=== PATIENT | female | born 1965 | race Caucasian/White ===

== ENCOUNTER 2020-12-11 13:10 | Inpatient (IN) | payer OTHER ==
[2020-12-11] MEDS ORDERED: ACETAMINOPHEN INJECTION 100 ML IVPB ONE (13:32)
[2020-12-11 14:06] LABS: BASO % 0.4 % (0-2.0); EOS % 0.1 % (0-4.5); HEMATOCRIT 41.5 % (32.4-45.2); HEMOGLOBIN 13.9 GM/dL (10.7-15.3); LYMPH % 19.4 % (8-40); MCH 29.3 pg (25.7-33.7); MCHC 33.5 g/dl (32.0-36.0); MEAN CELL VOLUME 87.7 fl (80-96); MEAN PLT VOLUME 9.4 fl (7.5-11.1); MONO % 6.3 % (3.8-10.2); NEUT % 73.8 % (42.8-82.8); PLATELET COUNT 198 K/MM3 (134-434); RBC 4.73 M/mm3 (3.60-5.2); RDW 14.5 % (11.6-15.6); WHITE BLOOD COUNT 4.1 K/mm3 (4.0-10.0)
[2020-12-11 14:12] LABS: INR 1.16 (0.83-1.09)
[2020-12-11 14:15] LABS: ACTIVATED PTT 32.1 SECONDS (25.2-36.5)
[2020-12-11 14:20] LABS: VENOUS BASE EXCESS -4.8 mmol/L (-2-2); VENOUS O2 SATURATION 97.8 % (70-80); VENOUS PCO2 29.8 mmHg (38-52); VENOUS PH 7.41 (7.310-7.410)
[2020-12-11 14:30] LABS: CHLORIDE 107 mmol/L (98-107); POTASSIUM 4.7 mmol/L (3.5-5.1); SODIUM 139 mmol/L (136-145)
[2020-12-11] MEDS ORDERED: DEXAMETHASONE SOD PHOSPHATE 4 MG/1 ML VIAL IVPUSH ONE (14:30)
[2020-12-11] MEDS ORDERED: SODIUM CHLORIDE 0.9% 500 ML INFUS.BAG IV ONE (14:30)
[2020-12-11 14:32] LABS: CALCIUM 8.5 mg/dL (8.5-10.1)
[2020-12-11 14:33] LABS: ANION GAP 8 MMOL/L (8-16); CO2 24 mmol/L (21-32); GLUCOSE,RANDOM 242 mg/dL (74-106)
[2020-12-11 14:35] LABS: BILIRUBIN,DIRECT 0.1 mg/dL (0.0-0.2)
[2020-12-11 14:36] LABS: CREATININE 0.7 mg/dL (0.55-1.3); SGOT/AST 44 U/L (15-37)
[2020-12-11 14:37] LABS: BILIRUBIN,TOTAL 0.6 mg/dL (0.2-1); LDH 422 U/L (84-246)
[2020-12-11 14:38] LABS: TOT PROT 7.5 g/dl (6.4-8.2)
[2020-12-11 14:39] LABS: ALK PHOS 91 U/L (45-117)
[2020-12-11] MEDS ORDERED: DEXAMETHASONE SOD PHOSPHATE 10 MG/1 ML VIAL ONE (14:41)
[2020-12-11 14:42] LABS: SGPT/ALT 43 U/L (13-61)
[2020-12-11] MEDS ORDERED: ACETAMINOPHEN 1000 MG/100 ML VIAL (NON FORMULARY) IVPB ONE (16:26)
[2020-12-11] MEDS ORDERED: ACETAMINOPHEN 325 MG TABLET (FP) PO PRN (17:54)
[2020-12-11 18:25] LABS: EPI CELLS 23 /uL (0-25.1); HYALINE CASTS 2 /uL (0-3.1); PH,URINE 5.5 (5.0-8.0); URINE APPEARANCE CLOUDY; URINE BACTERIA >9,000 /uL (0-1359); URINE BILIRUBIN NEGATIVE (NEGATIVE); URINE COLOR YELLOW; URINE GLUCOSE (UA) 3+ (NEGATIVE); URINE KETONE 1+ (NEGATIVE); URINE LEUK ESTERASE NEGATIVE (NEGATIVE); URINE NITRITE POSITIVE (NEGATIVE); URINE PROTEIN TRACE (NEGATIVE); URINE RBC 5 /uL (0-23.9); URINE UROBILINOGEN 0.2 mg/dL (0.2-1.0); URINE WBC 8 /uL (0-25.8)
[2020-12-11] MEDS: ENOXAPARIN NA (PORCINE) 40 MG/0.4 ML DISP.SYRIN SQ SCH (18:25)
[2020-12-11] MEDS: PANTOPRAZOLE 40 MG TABLET PO SCH (18:25)
[2020-12-11] MEDS: INSULIN SLIDING SCALE (NOVOLOG) 1 VIAL SQ SCH (21:48)
[2020-12-11] MEDS: ASCORBIC ACID 500 MG TABLET (FP) PO SCH (21:48)
[2020-12-11] MEDS: ATORVASTATIN CA 40 MG TABLET (FP) PO SCH (21:48)
[2020-12-11] MEDS ORDERED: INSULIN (LEVEMIR) 100 UNITS/ML UNITS SQ SCH (22:00)
[2020-12-12] MEDS: INSULIN SLIDING SCALE (NOVOLOG) 1 VIAL SQ SCH ×4 (06:32→21:47)
[2020-12-12 07:10] LABS: HEMATOCRIT 40.6 % (32.4-45.2); HEMOGLOBIN 13.5 GM/dL (10.7-15.3); MCH 29.4 pg (25.7-33.7); MCHC 33.2 g/dl (32.0-36.0); MEAN CELL VOLUME 88.6 fl (80-96); MEAN PLT VOLUME 9.2 fl (7.5-11.1); PLATELET COUNT 197 K/MM3 (134-434); RBC 4.58 M/mm3 (3.60-5.2); RDW 14.3 % (11.6-15.6); WHITE BLOOD COUNT 3.2 K/mm3 (4.0-10.0)
[2020-12-12 07:23] LABS: POTASSIUM 4.2 mmol/L (3.5-5.1)
[2020-12-12 07:28] LABS: BLOOD UREA NITROGEN 16.4 mg/dL (7-18)
[2020-12-12 07:31] LABS: CALCIUM 8.3 mg/dL (8.5-10.1); CREATININE 0.6 mg/dL (0.55-1.3)
[2020-12-12] MEDS: ENOXAPARIN NA (PORCINE) 40 MG/0.4 ML DISP.SYRIN SQ SCH (09:19)
[2020-12-12] MEDS: ASCORBIC ACID 500 MG TABLET (FP) PO SCH ×2 (09:20→21:46)
[2020-12-12] MEDS: PANTOPRAZOLE 40 MG TABLET PO SCH (09:20)
[2020-12-12] MEDS: CHOLECALCIFEROL (VIT D3) 1,000 UNIT (25 MCG) TABLET PO SCH (09:20)
[2020-12-12] MEDS: ZINC SULFATE 220 MG CAPSULE (FP) PO SCH (09:20)
[2020-12-12] MEDS: DEXAMETHASONE SOD PHOSPHATE 10 MG/1 ML VIAL IVPUSH SCH (09:20)
[2020-12-12] MEDS: metoPROLOL SUCCINATE 25 MG TAB.SR.24H (FP) PO SCH (09:20)
[2020-12-12] MEDS ORDERED: DEXTROSE 5%-WATER - 50 ML IVPB ONE (15:04)
[2020-12-12] MEDS ORDERED: cefTRIAXone SODIUM 1 GM VIAL ONE (15:04)
[2020-12-12] MEDS: CEFTRIAXONE 1 GM in DEXTROSE 5%-WATER - 50 ML IVPB SCH (16:14)
[2020-12-12] MEDS: ATORVASTATIN CA 40 MG TABLET (FP) PO SCH (21:46)
[2020-12-12] MEDS: FAMOTIDINE 20 MG TABLET PO SCH (21:46)
[2020-12-12] MEDS: INSULIN (LEVEMIR) 100 UNITS/ML UNITS SQ SCH (21:47)
[2020-12-13] MEDS: INSULIN (LEVEMIR) 100 UNITS/ML UNITS SQ SCH ×2 (06:17→22:06)
[2020-12-13] MEDS: INSULIN SLIDING SCALE (NOVOLOG) 1 VIAL SQ SCH ×4 (06:18→22:06)
[2020-12-13] MEDS ORDERED: INSULIN (NOVOLOG) ASPART 100 UNITS/ML 10ML VIAL ONE (09:52)
[2020-12-13] MEDS ORDERED: DEXTROSE 5%-WATER - 50 ML IVPB ONE (09:53)
[2020-12-13] MEDS ORDERED: cefTRIAXone SODIUM 1 GM VIAL ONE (09:53)
[2020-12-13] MEDS: ZINC SULFATE 220 MG CAPSULE (FP) PO SCH (10:07)
[2020-12-13] MEDS: ENOXAPARIN NA (PORCINE) 40 MG/0.4 ML DISP.SYRIN SQ SCH (10:07)
[2020-12-13] MEDS: guaiFENesin/CODEINE 5 ML UNIT-DOSE CUPS PO PRN ×2 (10:07→23:30)
[2020-12-13] MEDS: metoPROLOL SUCCINATE 25 MG TAB.SR.24H (FP) PO SCH (10:08)
[2020-12-13] MEDS: ASCORBIC ACID 500 MG TABLET (FP) PO SCH ×2 (10:08→22:06)
[2020-12-13] MEDS: CHOLECALCIFEROL (VIT D3) 1,000 UNIT (25 MCG) TABLET PO SCH (10:08)
[2020-12-13] MEDS: CEFTRIAXONE 1 GM in DEXTROSE 5%-WATER - 50 ML IVPB SCH (10:08)
[2020-12-13] MEDS: FAMOTIDINE 20 MG TABLET PO SCH ×2 (10:09→22:06)
[2020-12-13] MEDS: DEXAMETHASONE SOD PHOSPHATE 10 MG/1 ML VIAL IVPUSH SCH (10:09)
[2020-12-13 10:10] LABS: HEMOGLOBIN 13.3 GM/dL (10.7-15.3); LYMPH % 13.9 % (8-40); MCH 29.2 pg (25.7-33.7); MCHC 33.2 g/dl (32.0-36.0); MEAN CELL VOLUME 87.9 fl (80-96); MEAN PLT VOLUME 9.7 fl (7.5-11.1); MONO % 7.4 % (3.8-10.2); NEUT % 78.7 % (42.8-82.8); PLATELET COUNT 238 K/MM3 (134-434); RBC 4.55 M/mm3 (3.60-5.2); RDW 14.2 % (11.6-15.6)
[2020-12-13 10:26] LABS: POTASSIUM 4.1 mmol/L (3.5-5.1)
[2020-12-13 10:31] LABS: CALCIUM 8.4 mg/dL (8.5-10.1)
[2020-12-13 10:32] LABS: ALBUMIN 2.9 g/dl (3.4-5.0); BLOOD UREA NITROGEN 18.7 mg/dL (7-18); MAGNESIUM 2.2 mg/dL (1.8-2.4)
[2020-12-13 10:33] LABS: CREATININE 0.6 mg/dL (0.55-1.3)
[2020-12-13 10:34] LABS: BILIRUBIN,TOTAL 0.5 mg/dL (0.2-1); TOT PROT 7.4 g/dl (6.4-8.2)
[2020-12-13] MEDS ORDERED: INSULIN (LEVEMIR) 100 UNITS/ML UNITS SQ SCH ×2 (16:12→16:23)
[2020-12-13] MEDS: ATORVASTATIN CA 40 MG TABLET (FP) PO SCH (22:06)
[2020-12-14] MEDS ORDERED: MAG HYDROX/AL HYDROX/SIMETH 30 ML UNIT-DOSE CUP PO ONE (00:45)
[2020-12-14] MEDS ORDERED: PANTOPRAZOLE 40 MG TABLET PO ONE ×2 (01:15→15:00)
[2020-12-14] MEDS: INSULIN SLIDING SCALE (NOVOLOG) 1 VIAL SQ SCH ×4 (06:29→21:44)
[2020-12-14] MEDS: INSULIN (LEVEMIR) 100 UNITS/ML UNITS SQ SCH ×2 (06:29→21:44)
[2020-12-14] MEDS ORDERED: cefTRIAXone SODIUM 1 GM VIAL ONE (09:31)
[2020-12-14] MEDS ORDERED: DEXTROSE 5%-WATER - 50 ML IVPB ONE (09:31)
[2020-12-14] MEDS: CEFTRIAXONE 1 GM in DEXTROSE 5%-WATER - 50 ML IVPB SCH (11:00)
[2020-12-14] MEDS: CHOLECALCIFEROL (VIT D3) 1,000 UNIT (25 MCG) TABLET PO SCH (11:00)
[2020-12-14] MEDS: DEXAMETHASONE SOD PHOSPHATE 10 MG/1 ML VIAL IVPUSH SCH (11:00)
[2020-12-14] MEDS: ASCORBIC ACID 500 MG TABLET (FP) PO SCH ×2 (11:01→21:43)
[2020-12-14] MEDS: ENOXAPARIN NA (PORCINE) 40 MG/0.4 ML DISP.SYRIN SQ SCH (11:01)
[2020-12-14] MEDS: metoPROLOL SUCCINATE 25 MG TAB.SR.24H (FP) PO SCH (11:01)
[2020-12-14] MEDS: ZINC SULFATE 220 MG CAPSULE (FP) PO SCH (11:01)
[2020-12-14] MEDS: FAMOTIDINE 20 MG TABLET PO SCH ×2 (11:01→21:44)
[2020-12-14] MEDS ORDERED: INSULIN (NOVOLOG) ASPART 100 UNITS/ML 10ML VIAL ONE (11:12)
[2020-12-14] MEDS: ATORVASTATIN CA 40 MG TABLET (FP) PO SCH (21:43)
[2020-12-15] MEDS: INSULIN (LEVEMIR) 100 UNITS/ML UNITS SQ SCH (06:03)
[2020-12-15] MEDS: INSULIN SLIDING SCALE (NOVOLOG) 1 VIAL SQ SCH ×3 (06:03→17:14)
[2020-12-15] MEDS ORDERED: SODIUM CHLORIDE 50 ML IVPB ONE (10:22)
[2020-12-15] MEDS ORDERED: ERTAPENEM SODIUM 1 GM VIAL ONE (10:22)
[2020-12-15] MEDS: ASCORBIC ACID 500 MG TABLET (FP) PO SCH (10:29)
[2020-12-15] MEDS: FAMOTIDINE 20 MG TABLET PO SCH (10:29)
[2020-12-15] MEDS: ZINC SULFATE 220 MG CAPSULE (FP) PO SCH (10:29)
[2020-12-15] MEDS: ERTAPENEM SODIUM 1 GM in SODIUM CHLORIDE 50 ML IVPB SCH ×2 (10:29→17:14)
[2020-12-15] MEDS: metoPROLOL SUCCINATE 25 MG TAB.SR.24H (FP) PO SCH (10:29)
[2020-12-15] MEDS: CHOLECALCIFEROL (VIT D3) 1,000 UNIT (25 MCG) TABLET PO SCH (10:29)
[2020-12-15] MEDS: ENOXAPARIN NA (PORCINE) 40 MG/0.4 ML DISP.SYRIN SQ SCH (10:29)
[2020-12-15] MEDS ORDERED: INSULIN (NOVOLOG) ASPART 100 UNITS/ML 10ML VIAL ONE (10:49)
[2020-12-15 14:28] VITALS: BP 112/68; PULSE 77; TEMP 97.7
[2020-12-15] MEDS ORDERED: PT OWN MED DRAWER 7, Y5N ONE (17:09)
== END 2020-12-15 20:30 | disposition home or self-care (01) | DRG 137 ==
LOC: JER 13:10 → JERBED 14:53 → J7W 17:15
PROVIDERS: ADMIT Internal Medicine; ATTEND Student in an Organized Health Care Education/Training Program
PROC: 02HV33Z Insertion of Infusion Device into Superior Vena Cava, Percutaneous Approach (ICD-10-PCS; principal; 2020-12-15)
PROC: B518ZZA Fluoroscopy of Superior Vena Cava, Guidance (ICD-10-PCS; 2020-12-15)
DX: U07.1 COVID-19 (principal); J12.82 Pneumonia due to coronavirus disease 2019; I10 Essential (primary) hypertension; E78.5 Hyperlipidemia, unspecified; E11.9 Type 2 diabetes mellitus without complications; R50.9 Fever, unspecified; R09.02 Hypoxemia; N39.0 Urinary tract infection, site not specified; B96.20 Unspecified Escherichia coli [E. coli] as the cause of diseases classified elsewhere; E66.9 Obesity, unspecified; Z68.30 Body mass index [BMI] 30.0-30.9, adult
CPT/HCPCS: 36415; 36569; 71045-TC-FY; 80048; 80053; 81003; 82248; 82550; 82553; 82728; 82803; 82962; 83605; 83615; 83735; 84100; 84484; 85025; 85027; 85379; 85610; 85730; 86140; 86769; 87040; 87070; 87077; 87086; 87186; 87205; 87804; 93005; 93010; 94761; 99285-25; C9803; J0131; J1100; U0003

== ENCOUNTER 2020-12-20 12:45 | Day surgery (SDC) | payer OTHER ==
[2020-12-20] MEDS ORDERED: ERTAPENEM SODIUM 1 GM VIAL ONE (13:28)
[2020-12-20] MEDS ORDERED: SODIUM CHLORIDE 50 ML IVPB ONE (13:28)
[2020-12-20] MEDS ORDERED: ERTAPENEM SODIUM 1 GM in SODIUM CHLORIDE 50 ML IVPB ONE (13:30)
[2020-12-20 13:45] VITALS: BP 107/77; PULSE 92; TEMP 98.8
== END 2020-12-20 14:35 | disposition home or self-care (01) ==
LOC: JINFUSION 12:45 → UNDOADMIN 13:03 → J7W 13:03 → JINFUSION 14:35
PROVIDERS: ATTEND Internal Medicine Infectious Disease
DX: N39.0 Urinary tract infection, site not specified (principal); B96.20 Unspecified Escherichia coli [E. coli] as the cause of diseases classified elsewhere
CPT/HCPCS: 96365

== ENCOUNTER 2020-12-21 12:54 | Day surgery (SDC) | payer OTHER ==
[~2020-12-21 12:54] MED LIST: ERTAPENEM SODIUM 1 GM in SODIUM CHLORIDE 100 ML IVPB ONE; ERTAPENEM SODIUM 1 GM in SODIUM CHLORIDE 50 ML IVPB ONE
[2020-12-21] MEDS ORDERED: SODIUM CHLORIDE 100 ML IVPB ONE (13:07)
[2020-12-21] MEDS ORDERED: ERTAPENEM SODIUM 1 GM VIAL ONE (13:07)
[2020-12-21 13:33] VITALS: TEMP 98.1
[2020-12-21 14:47] VITALS: BP 118/74; PULSE 88
== END 2020-12-21 14:49 | disposition home or self-care (01) ==
LOC: JINFUSION 12:54 → J7W 13:03 → JINFUSION 14:49
PROVIDERS: ATTEND Internal Medicine Infectious Disease
DX: N39.0 Urinary tract infection, site not specified (principal); B96.20 Unspecified Escherichia coli [E. coli] as the cause of diseases classified elsewhere
CPT/HCPCS: 96365

== ENCOUNTER 2020-12-22 13:12 | Day surgery (SDC) | payer OTHER ==
[~2020-12-22 13:12] MED LIST changes: -ERTAPENEM SODIUM 1 GM in SODIUM CHLORIDE 100 ML IVPB ONE
[2020-12-22] MEDS ORDERED: ERTAPENEM SODIUM 1 GM in SODIUM CHLORIDE 50 ML IVPB ONE (13:30)
[2020-12-22] MEDS ORDERED: ERTAPENEM SODIUM 1 GM VIAL ONE (13:33)
[2020-12-22] MEDS ORDERED: SODIUM CHLORIDE 50 ML IVPB ONE (13:33)
[2020-12-22 19:35] VITALS: BP 118/76; PULSE 86; TEMP 98
== END 2020-12-22 14:35 | disposition home or self-care (01) ==
LOC: J7W 13:12 → JINFUSION 13:12
PROVIDERS: ATTEND Internal Medicine Infectious Disease
DX: N39.0 Urinary tract infection, site not specified (principal); B96.20 Unspecified Escherichia coli [E. coli] as the cause of diseases classified elsewhere
CPT/HCPCS: 96365

== ENCOUNTER 2020-12-23 13:08 | Day surgery (SDC) | payer OTHER ==
[~2020-12-23 13:08] MED LIST changes: +ERTAPENEM SODIUM 1 GM in SODIUM CHLORIDE 100 ML IVPB ONE
[2020-12-23] MEDS ORDERED: SODIUM CHLORIDE 100 ML IVPB ONE (13:12)
[2020-12-23] MEDS ORDERED: ERTAPENEM SODIUM 1 GM VIAL ONE (13:12)
[2020-12-23 16:47] VITALS: BP 132/80; PULSE 78; TEMP 98.5
== END 2020-12-23 14:15 | disposition home or self-care (01) ==
LOC: J7W 13:08 → JINFUSION 13:08
PROVIDERS: ATTEND Internal Medicine Infectious Disease
DX: N39.0 Urinary tract infection, site not specified (principal); B96.20 Unspecified Escherichia coli [E. coli] as the cause of diseases classified elsewhere
CPT/HCPCS: 96365

== ENCOUNTER 2020-12-24 13:28 | Day surgery (SDC) | payer OTHER ==
[2020-12-24] MEDS ORDERED: ERTAPENEM SODIUM 1 GM in SODIUM CHLORIDE 50 ML IVPB ONE (13:45)
[2020-12-24] MEDS ORDERED: ERTAPENEM SODIUM 1 GM in DEXTROSE 5%-WATER - 50 ML IVPB ONE (13:45)
[2020-12-24] MEDS ORDERED: ERTAPENEM SODIUM 1 GM in DEXTROSE 5%-WATER - 50 ML IVPB SCH (13:45)
[2020-12-24] MEDS ORDERED: ERTAPENEM SODIUM 1 GM VIAL ONE (13:46)
[2020-12-24] MEDS ORDERED: SODIUM CHLORIDE 50 ML IVPB ONE (13:47)
[2020-12-24 17:23] VITALS: BP 125/92; PULSE 87; TEMP 98.5
== END 2020-12-24 17:25 | disposition home or self-care (01) ==
LOC: JINFUSION 13:28 → J7W 13:29 → JINFUSION 17:25
PROVIDERS: ATTEND Internal Medicine Infectious Disease
DX: N39.0 Urinary tract infection, site not specified (principal); B96.20 Unspecified Escherichia coli [E. coli] as the cause of diseases classified elsewhere
CPT/HCPCS: 96365

== ENCOUNTER 2020-12-25 13:41 | Day surgery (SDC) | payer OTHER ==
[2020-12-25] MEDS ORDERED: ERTAPENEM SODIUM 1 GM in SODIUM CHLORIDE 50 ML IVPB ONE (14:00)
[2020-12-25 18:29] VITALS: BP 114/75; PULSE 89; TEMP 98.7
== END 2020-12-25 14:00 | disposition home or self-care (01) ==
LOC: JINFUSION 13:41 → J7W 13:42 → JINFUSION 14:00
PROVIDERS: ATTEND Internal Medicine Infectious Disease
DX: N39.0 Urinary tract infection, site not specified (principal)
CPT/HCPCS: 96365

== ENCOUNTER 2020-12-26 12:52 | Day surgery (SDC) | payer OTHER ==
[2020-12-26] MEDS ORDERED: ERTAPENEM SODIUM 1 GM VIAL ONE (13:10)
[2020-12-26] MEDS ORDERED: SODIUM CHLORIDE 50 ML IVPB ONE (13:10)
[2020-12-26] MEDS ORDERED: ERTAPENEM SODIUM 1 GM in SODIUM CHLORIDE 50 ML IVPB ONE (13:15)
[2020-12-26 14:55] VITALS: BP 121/82; PULSE 94; TEMP 98.1
== END 2020-12-26 15:06 | disposition home or self-care (01) ==
LOC: JINFUSION 12:52 → J7W 12:52 → JINFUSION 15:06
PROVIDERS: ATTEND Internal Medicine Infectious Disease
DX: N39.0 Urinary tract infection, site not specified (principal); B96.20 Unspecified Escherichia coli [E. coli] as the cause of diseases classified elsewhere
CPT/HCPCS: 96365

== ENCOUNTER 2020-12-27 12:51 | Day surgery (SDC) | payer OTHER ==
[~2020-12-27 12:51] MED LIST changes: -ERTAPENEM SODIUM 1 GM in SODIUM CHLORIDE 100 ML IVPB ONE
[2020-12-27] MEDS ORDERED: ERTAPENEM SODIUM 1 GM VIAL ONE (13:02)
[2020-12-27] MEDS ORDERED: SODIUM CHLORIDE 50 ML IVPB ONE (13:02)
[2020-12-27 13:21] VITALS: TEMP 98.8
[2020-12-27 15:16] VITALS: BP 133/78; PULSE 92
== END 2020-12-27 15:17 | disposition home or self-care (01) ==
LOC: JINFUSION 12:51 → J7W 12:52 → JINFUSION 15:17
PROVIDERS: ATTEND Internal Medicine Infectious Disease
DX: N39.0 Urinary tract infection, site not specified (principal); B96.20 Unspecified Escherichia coli [E. coli] as the cause of diseases classified elsewhere
CPT/HCPCS: 96365

== ENCOUNTER 2020-12-28 13:11 | Day surgery (SDC) | payer OTHER ==
[2020-12-28] MEDS ORDERED: SODIUM CHLORIDE 50 ML IVPB ONE (13:18)
[2020-12-28] MEDS ORDERED: ERTAPENEM SODIUM 1 GM VIAL ONE (13:18)
[2020-12-28 13:29] VITALS: TEMP 98.7
[2020-12-28 14:29] VITALS: BP 128/80; PULSE 100
== END 2020-12-28 14:36 | disposition home or self-care (01) ==
LOC: J7W 13:11 → JINFUSION 13:11
PROVIDERS: ATTEND Internal Medicine Infectious Disease
DX: N39.0 Urinary tract infection, site not specified (principal); B96.20 Unspecified Escherichia coli [E. coli] as the cause of diseases classified elsewhere
CPT/HCPCS: 96365

== ENCOUNTER 2020-12-29 13:12 | Day surgery (SDC) | payer OTHER ==
[2020-12-29] MEDS ORDERED: SODIUM CHLORIDE 50 ML IVPB ONE (13:29)
[2020-12-29] MEDS ORDERED: ERTAPENEM SODIUM 1 GM VIAL ONE (13:29)
[2020-12-29 14:01] VITALS: BP 134/79; PULSE 100; TEMP 98.8
== END 2020-12-29 14:34 | disposition home or self-care (01) ==
LOC: JINFUSION 13:12 → J7W 13:13 → JINFUSION 14:34
PROVIDERS: ATTEND Internal Medicine Infectious Disease
DX: N39.0 Urinary tract infection, site not specified (principal); B96.20 Unspecified Escherichia coli [E. coli] as the cause of diseases classified elsewhere
CPT/HCPCS: 96365

== ENCOUNTER 2021-02-18 11:49 | Emergency (ER) | payer OTHER ==
[2021-02-18 12:51] VITALS: BP 133/71; PULSE 96; TEMP 98.1; BMI 31.2
[2021-02-18] MEDS ORDERED: SODIUM CHLORIDE 0.9% 500 ML INFUS.BAG IV ONE (13:53)
[2021-02-18] MEDS ORDERED: METOCLOPRAMIDE HCL INJECTION 10 MG/2 ML VIAL IVPUSH ONE (13:54)
[2021-02-18] MEDS ORDERED: METOCLOPRAMIDE HCL INJECTION 10 MG/2 ML VIAL ONE (14:39)
[2021-02-18 15:18] LABS: BASO % 0.8 % (0-2.0); EOS % 2.1 % (0-4.5); HEMATOCRIT 41.4 % (32.4-45.2); HEMOGLOBIN 13.8 GM/dL (10.7-15.3); MCH 29.6 pg (25.7-33.7); MCHC 33.3 g/dl (32.0-36.0); MEAN CELL VOLUME 88.9 fl (80-96); MEAN PLT VOLUME 8.6 fl (7.5-11.1); MONO % 8.3 % (3.8-10.2); NEUT % 66.8 % (42.8-82.8); PLATELET COUNT 286 K/MM3 (134-434); RBC 4.66 M/mm3 (3.60-5.2); RDW 15.1 % (11.6-15.6); WHITE BLOOD COUNT 6.9 K/mm3 (4.0-10.0)
[2021-02-18 15:39] LABS: ALBUMIN 3.4 g/dl (3.4-5.0); BLOOD UREA NITROGEN 9.5 mg/dL (7-18)
[2021-02-18 15:41] LABS: CREATININE 0.5 mg/dL (0.55-1.3)
[2021-02-18 15:42] LABS: BILIRUBIN,TOTAL 0.6 mg/dL (0.2-1); TOT PROT 7.8 g/dl (6.4-8.2)
[2021-02-18 15:57] LABS: PLATELET ESTIMATE NORMAL
== END 2021-02-18 21:00 | disposition home or self-care (01) ==
LOC: JER 11:49
PROC: 3E033GC Introduction of Other Therapeutic Substance into Peripheral Vein, Percutaneous Approach (ICD-10-PCS; principal; 2021-02-18)
DX: R10.9 Unspecified abdominal pain (principal); R51.9 Headache, unspecified
CPT/HCPCS: 36415; 70450-TC; 74177-TC; 76830-TC; 80053; 83690; 85025; 99285-25; Q9967

== ENCOUNTER 2022-06-24 16:53 | Emergency (ER) | payer OTHER ==
[2022-06-24 17:17] VITALS: BMI 30.2
[2022-06-24] MEDS ORDERED: SODIUM CHLORIDE 0.9% 500 ML INFUS.BAG IV ONE (19:18)
[2022-06-24 20:03] LABS: BASO % 0.6 % (0-2.0); EOS % 1.6 % (0-4.5); HEMATOCRIT 42.4 % (32.4-45.2); HEMOGLOBIN 14.2 GM/dL (10.7-15.3); LYMPH % 25.7 % (8-40); MCHC 33.5 g/dl (32.0-36.0); MEAN CELL VOLUME 89.4 fl (80-96); MEAN PLT VOLUME 8.5 fl (7.5-11.1); MONO % 6.6 % (3.8-10.2); NEUT % 65.5 % (42.8-82.8); PLATELET COUNT 228 10^3/uL (134-434); RBC 4.74 M/mm3 (3.60-5.2); WHITE BLOOD COUNT 6.9 K/mm3 (4.0-10.0)
[2022-06-24 20:21] LABS: CALCIUM 8.7 mg/dL (8.5-10.1)
[2022-06-24 20:22] LABS: ALBUMIN 3.1 g/dl (3.4-5.0)
[2022-06-24 20:25] LABS: CREATININE 0.7 mg/dL (0.55-1.3)
[2022-06-24 20:26] LABS: BILIRUBIN,TOTAL 0.5 mg/dL (0.2-1); TOT PROT 7.8 g/dl (6.4-8.2)
[2022-06-24 20:49] LABS: VENOUS BASE EXCESS -0.1 mmol/L (-2-2); VENOUS O2 SATURATION 49.7 % (70-80); VENOUS PCO2 53.6 mmHg (38-52); VENOUS PH 7.319 (7.310-7.410)
[2022-06-24] MEDS ORDERED: INSULIN REGULAR HUMAN 100 UNITS/ML *VIAL IVPUSH ONE (21:11)
[2022-06-24 22:11] VITALS: BP 152/60; PULSE 69; RESP 20; TEMP 98
[2022-06-24 22:16] LABS: EPI CELLS >36 /uL (0-25.1); HYALINE CASTS 1 /uL (0-3.1); PH,URINE 5.5 (5.0-8.0); URINE APPEARANCE CLEAR; URINE BACTERIA 905 /uL (0-1359); URINE BILIRUBIN NEGATIVE (NEGATIVE); URINE COLOR YELLOW; URINE GLUCOSE (UA) 3+ (NEGATIVE); URINE KETONE NEGATIVE (NEGATIVE); URINE LEUK ESTERASE TRACE (NEGATIVE); URINE NITRITE NEGATIVE (NEGATIVE); URINE PROTEIN NEGATIVE (NEGATIVE); URINE RBC 5 /uL (0-23.9); URINE UROBILINOGEN 0.2 mg/dL (0.2-1.0); URINE WBC 73 /uL (0-25.8)
== END 2022-06-24 22:55 | disposition home or self-care (01) ==
LOC: JER 16:53
PROC: 3E013VG Introduction of Insulin into Subcutaneous Tissue, Percutaneous Approach (ICD-10-PCS; principal; 2022-06-24)
DX: R73.9 Hyperglycemia, unspecified (principal)
CPT/HCPCS: 36415; 80053; 81003; 82010; 82803; 82962; 85025; 87086; 93005; 93010; 99284-25

== ENCOUNTER 2024-09-19 17:43 | Emergency (ER) | payer OTHER ==
[2024-09-19 18:14] VITALS: BP 154/92; PULSE 97; RESP 16; TEMP 98.6; BMI 31.0
[2024-09-19] MEDS ORDERED: KETOROLAC TROMETHAMINE 30 MG/1 ML VIAL ONE (18:59)
[2024-09-19] MEDS: KETOROLAC TROMETHAMINE 30 MG/1 ML VIAL IM ONE (19:02)
[2024-09-19] MEDS ORDERED: GABAPENTIN 100 MG CAPSULE ONE ×2 (19:41→19:42)
[2024-09-19] MEDS: GABAPENTIN 100 MG CAPSULE PO ONE (19:44)
== END 2024-09-19 20:00 | disposition home or self-care (01) ==
LOC: JER 17:43
PROC: 3E0133Z Introduction of Anti-inflammatory into Subcutaneous Tissue, Percutaneous Approach (ICD-10-PCS; principal; 2024-09-19)
DX: G62.9 Polyneuropathy, unspecified (principal); M54.50 Low back pain, unspecified; M54.2 Cervicalgia; M25.512 Pain in left shoulder
CPT/HCPCS: 82962; 93005; 93010; 99284-25